=== PATIENT | male | born 1970 | race Caucasian/White ===

== ENCOUNTER 2017-01-30 14:52 | Outpatient (CLI) | payer OTHER ==
--- NOTE | 2017-01-30 16:04 | DIAGNOSTIC IMAGING REPORT ---
PROCEDURE: CT PELVIS WITHOUT CONTRAST INDICATION: RT GROIN PAIN TECHNIQUE: Noncontrast axial images with sagittal and coronal reformations. Study performed without and with Valsalva. COMPARISON: None. FINDINGS: There is a 4 cm right inguinal hernia containing fat and vessels. There is a smaller left inguinal hernia present. There are left inguinal surgical clips. The nonspecific bowel gas pattern. Normal appendix. Enlarged prostate (5.5 cm). No pelvic mass, inflammatory changes or free fluid. Moderate degenerative changes of the spine. IMPRESSION: 1. 4 cm fat-containing right inguinal hernia. There is also a smaller left inguinal hernia All CT scans at this facility use dose modulation, iterative reconstruction, and/or weight-based dosing when appropriate to reduce radiation dose to as low as reasonably achievable.
[2017-03-24] MEDS ORDERED: LASIX20 MG PO (17:10)
[2017-03-24] MEDS ORDERED: LISINOPRIL20 MG PO (17:11)
[2017-03-24] MEDS ORDERED: TESTOSTERONE BOOSTER PO (17:13)
[2017-03-27] MEDS ORDERED: NORCO1 TA1 PO (09:25)
== END 2017-01-30 23:00 ==
LOC: CT SRH 14:52
DX: R10.31 Right lower quadrant pain (principal); K40.20 Bilateral inguinal hernia, without obstruction or gangrene, not specified as recurrent